=== PATIENT | male | born 2000 | race Two or more races ===

== ENCOUNTER 2025-02-11 15:03 | Emergency (ER) | payer OTHER ==
[~2025-02-11] VITALS: Ht 160 cm; Wt 65.8 kg
[2025-02-11 15:10] VITALS: TEMP 98.5
[2025-02-11] MEDS ORDERED: ALBUTEROL FS 2.5 MG/3 ML VIAL.NEB ONE (15:21)
[2025-02-11] MEDS ORDERED: IPRATROPIUM NEB FS 0.5 MG/2.5 ML AMPUL.NEB ONE (15:21)
[2025-02-11 15:23] VITALS: O2SAT 97
[2025-02-11] MEDS: ALBUTEROL FS 2.5 MG/3 ML VIAL.NEB CONTNEB ONE (15:23)
[2025-02-11] MEDS: IPRATROPIUM NEB FS 0.5 MG/2.5 ML AMPUL.NEB NEB ONE (15:23)
[2025-02-11 15:38] VITALS: O2SAT 99
[2025-02-11] MEDS ORDERED: PRED50TA PO (16:10)
[2025-02-11] MEDS ORDERED: ALBU8.5H8 INH (16:10)
[2025-02-11 16:26] VITALS: BP 130/75; O2SAT 95
== END 2025-02-11 17:05 | disposition left against medical advice (07) ==
LOC: ER 15:09
DX: J45.901 Unspecified asthma with (acute) exacerbation (principal); Z79.52 Long term (current) use of systemic steroids; Z20.822 Contact with and (suspected) exposure to COVID-19
CPT/HCPCS: 99285; 71045; 87426; 93005; 87804 ×2; 94640; J7512